=== PATIENT | male | born 1985 | race Caucasian/White ===

== ENCOUNTER → 2023-08-18 | Outpatient (CLI) | payer BC | LOC: M RAD 09:27 | PROVIDERS: ATTEND Physician Assistant | DX: R10.9 Unspecified abdominal pain (principal); R50.9 Fever, unspecified; R20.2 Paresthesia of skin; M79.10 Myalgia, unspecified site ==

== ENCOUNTER → 2023-08-18 | Outpatient (CLI) | payer BC | LOC: M RAD 13:54 | PROVIDERS: ATTEND Nurse Practitioner Family | DX: R10.9 Unspecified abdominal pain (principal); R93.89 Abnormal findings on diagnostic imaging of other specified body structures ==